=== PATIENT | male | born 1965 | race Caucasian/White ===

== ENCOUNTER 2018-12-11 13:58 | Emergency (ER) | payer OTHER ==
[2018-12-11 14:14] VITALS: BP 157/79; PULSE 76; RESP 16; TEMP 97.8
[2018-12-11] MEDS ORDERED: LIDOCAINE 1% INJ 10MG/ML (20 ML MDV) SQ ONE (14:19)
[2018-12-11] MEDS ORDERED: DIPH,PERTUS(ACELL)TETVAC-LF 0.5 ML VIAL IM ONE (14:19)
--- NOTE | 2018-12-11 14:23 | ED ---
Wound/Laceration HPI - General Chief Complaint: Wound/Laceration Stated Complaint: Facial Injury Time Seen by Provider: 12/11/18 14:16 Source: patient Mode of arrival: ambulatory Limitations: no limitations - History of Present Illness Initial Comments: Patient is a 53-year-old male presenting to emergency Department with complaints of a laceration to his bottom lip that happened prior to arrival. Patient states he was reaching for a baez on the upper shelf when it fell hitting him in the bottom lip as well as on the chin. Bleeding is minimal at this time. Patient denies being on blood thinners. Patient denies any other injuries from the baez falling. Patient states he does not remember his last tetanus vaccine. Patient has no pain in his jaw or head. Patient has no other complaints at this time. Upon arrival to ER, vital signs are stable. - Related Data Allergies Allergy/AdvReac Type Severity Reaction Status Date / Time Penicillins AdvReac Unknown Verified 12/11/18 14:37 Review of Systems ROS Statement: Those systems with pertinent positive or pertinent negative responses have been documented in the HPI. ROS Other: All systems not noted in ROS Statement are negative. Past Medical History Past Medical History: Diabetes Mellitus, Hypertension Additional Past Medical History / Comment(s): cx tounge 1993 History of Any Multi-Drug Resistant Organisms: None Reported Past Surgical History: No Surgical Hx Reported, Orthopedic Surgery Additional Past Surgical History / Comment(s): tounge surgery due to cx. Past Psychological History: No Psychological Hx Reported Smoking Status: Current every day smoker Past Alcohol Use History: Rare Past Drug Use History: Marijuana General Exam - General Exam Comments Initial Comments: GENERAL: Well-appearing, well-nourished and in no acute distress. HEAD: Atraumatic, normocephalic. EYES: Pupils equal round and reactive to light, extraocular movements intact, sclera anicteric, conjunctiva are normal. ENT: TMs normal, nares patent, oropharynx clear without exudates. Moist mucous membranes. Patient has a 1 cm laceration to the bottom lip including the vermilion border. Bleeding is controlled at this time. Patient also has a small superficial 0.5 cm lac to the chin area. This is not requiring sutures. No bleeding at this time. NECK: Normal range of motion, supple without lymphadenopathy or JVD. LUNGS: Breath sounds clear to auscultation bilaterally and equal. No wheezes rales or rhonchi. HEART: Regular rate and rhythm without murmurs, rubs or gallops. ABDOMEN: Soft, nontender, normoactive bowel sounds. No guarding, no rebound. No masses appreciated. : Deferred EXTREMITIES: Normal range of motion, no pitting or edema. No clubbing or cyanosis. NEUROLOGICAL: Cranial nerves II through XII grossly intact. Normal speech, normal gait. PSYCH: Normal mood, normal affect. SKIN: Warm, Dry, normal turgor, no rashes or lesions noted. Limitations: no limitations Course Vital Signs 12/11/18 14:09 Temperature 97.8 F Pulse Rate 76 Respiratory 16 Rate Blood Pressure 157/79 O2 Sat by Pulse 97 Oximetry Procedures - Laceration Laceration #1 Consent Obtained: verbal consent Indication: laceration Site: lip (Bottom lip) Size (cm): 1 Description: linear, involves benjamín border Depth: simple, single layer Anesthetic Used: lidocaine 1% Anesthesia Technique: local infiltration Amount (mls): 2 Pre-repair: irrigated extensively Type of Sutures: nylon Size of Sutures: 5-0 Number of Sutures: 3 Technique: simple, interrupted Patient Tolerated Procedure: well Medical Decision Making - Medical Decision Making Patient is a 53-year-old male presenting with a laceration to his bottom lip. Patient states he was pulling up hand out from a top cupboard when it fell onto his lip and chin. Patient has a small superficial laceration to his chin area which does not require sutures. Patient has a 1 cm laceration to the left side of the bottom lip involving the vermilion border. Wound was cleaned and closed with 3, 5-0 sutures. Patient tolerated procedure well. Patient will have sutures removed in 7-10 days. Patient's tetanus vaccine was updated today. Patient is stable for discharge at this time. Return parameters were discussed with the patient he verbalizes understanding. Case discussed with Dr. Askew. Disposition Clinical Impression: Laceration of lower lip Disposition: HOME SELF-CARE Condition: Stable Instructions (If sedation given, give patient instructions): Care For Your Stitches (ED), Laceration (ED) Additional Instructions: Please return to the Emergency Department if symptoms worsen or any other concerns. Sutures need to removed in 7-9 days. Is patient prescribed a controlled substance at d/c from ED?: No Referrals: Mayco Gonzalez MD [Primary Care Provider] - 1-2 days
== END 2018-12-11 15:05 | disposition home or self-care (01) ==
LOC: EC 13:58
DX: S01.511A Laceration without foreign body of lip, initial encounter (principal); S01.81XA Laceration without foreign body of other part of head, initial encounter; F17.200 Nicotine dependence, unspecified, uncomplicated; Z23 Encounter for immunization; Z85.810 Personal history of malignant neoplasm of tongue; Z98.890 Other specified postprocedural states; Z88.0 Allergy status to penicillin; W20.8XXA Other cause of strike by thrown, projected or falling object, initial encounter; Y92.009 Unspecified place in unspecified non-institutional (private) residence as the place of occurrence of the external cause; Y93.89 Activity, other specified
CPT/HCPCS: 90715; 99282; 12011; 90471; J2001

== ENCOUNTER 2019-04-28 06:49 | Day surgery (SDC) | payer OTHER ==
[2019-04-26 12:50] VITALS: BMI 36.5
[2019-04-28] MEDS ORDERED: LACTATED RINGERS 1,000 ML IV SCH (07:00)
[2019-04-28] MEDS ORDERED: LIDOCAINE 1% 20 ML VIAL (10MG/ML) FOR IV START INTRADERMA PRN (07:00)
[2019-04-28 07:10] VITALS: RESP 18; TEMP 98.2
[2019-04-28] MEDS ORDERED: PROPOFOL 10 MG/ML 20 ML VIAL IV ONE (07:32)
[2019-04-28] MEDS ORDERED: LIDOCAINE 1% INJ 10MG/ML (20 ML MDV) ONE (07:32)
[2019-04-28 07:35] LABS: Glucose,Whole Blood 118 mg/dL (75-99)
--- NOTE | 2019-04-28 07:57 | P.PCN ---
Date of Procedure: 04/28/19 Procedure(s) Performed: Brief history: Patient is a pleasant 53-year-old white male scheduled for an elective upper endoscopy as well as colonoscopy as a part of evaluation of I deficiency anemia. He denies any GI symptoms. Procedure performed: Esophagogastroduodenoscopy with biopsy Colonoscopy Preoperative diagnosis: Iron deficiency anemia Anesthesia: [facility] [place] Procedure: After informed consent was obtained from the patient was brought into the endoscopy unit and IV sedation was administered by anesthesia under continuous monitoring. Initially upper endoscopy was done. The Olympus GF 160 video endoscope was inserted inserted into the mouth and esophagus intubated without any difficulty and was gradually advanced into the stomach and duodenum and carefully examined. The bulb and second part of the duodenum appeared normal. Biopsies were done from the duodenum to rule out celiac disease. The scope was then withdrawn into the stomach adequately insufflated with air and upon careful examination the antrum had mild diffuse gastritis and biopsies were done from this area. The body, cardia and fundus appeared normal. The scope was then withdrawn into the esophagus. The GE junction was located at 40 cm to the incisors. It appeared regular with no erythema erosions or ulcerations. Rest of the esophagus appeared normal. Patient tolerated the procedure well. At this time the patient continued to remain sedation. Initial digital rectal examination was normal. Olympus CF 160 video colonoscope was then inserted into the rectum and gradually advanced to the cecum without any difficulty. Careful examination was performed as the scope was gradually being withdrawn. The prep was excellent. The cecum, ascending colon, appeared normal in the mid transverse colon there was a 5 mm isolated ulceration with a clean base identified and this was biopsied. The rest of the transverse colon, descending colon, sigmoid colon and rectum appeared normal. Retroflexion was performed in the rectum and small internal hemorrhoids were noted. Patient tolerated the procedure well. Impression: 1. Upper endoscopy revealed mild diffuse antral gastritis 2. Colonoscopy revealed a 5 mm isolated mid transverse colon ulcer status post biopsy and small internal hemorrhoids. No evidence of colorectal neoplasia Recommendations: Findings of this examination were discussed with the patient as well as his family. He was advised to follow with the biopsy results.
[2019-04-28] MEDS ORDERED: IV FLUID CONTINUATION 1,000 ML IV ONE (08:00)
[2019-04-28 08:17] VITALS: BP 130/91; PULSE 66
== END 2019-04-28 08:44 | disposition home or self-care (01) ==
LOC: ORWHC2ENDO 06:49
PROVIDERS: ATTEND Internal Medicine Gastroenterology
DX: K29.50 Unspecified chronic gastritis without bleeding (principal); K63.3 Ulcer of intestine; K64.8 Other hemorrhoids; D50.9 Iron deficiency anemia, unspecified; Z79.899 Other long term (current) drug therapy; I10 Essential (primary) hypertension; E78.5 Hyperlipidemia, unspecified; F17.200 Nicotine dependence, unspecified, uncomplicated; Z85.810 Personal history of malignant neoplasm of tongue; E11.9 Type 2 diabetes mellitus without complications; K21.9 Gastro-esophageal reflux disease without esophagitis; Z79.84 Long term (current) use of oral hypoglycemic drugs; Z79.891 Long term (current) use of opiate analgesic; Z88.0 Allergy status to penicillin
CPT/HCPCS: 88305; 45380; 43239; J2001; J2704

== ENCOUNTER 2019-07-27 11:31 | Emergency (ER) | payer OTHER ==
[2019-07-27 11:36] VITALS: RESP 18; TEMP 98.3
[2019-07-27] MEDS ORDERED: ORPHENADRINE 30 MG/ML 2 ML VIAL IM STA (12:32)
[2019-07-27] MEDS ORDERED: KETOROLAC 60 MG/2 ML VIAL IM STA (12:32)
--- NOTE | 2019-07-27 12:35 | XR ---
EXAMINATION TYPE: XR lumbar spine 2 or 3V DATE OF EXAM: 07/27/2019 CLINICAL HISTORY: pain TECHNIQUE: Three views of the lumbar spine are submitted. COMPARISON: 05/11/2014 FINDINGS: There are 5 lumbar type vertebral bodies identified. The lumbar spine shows satisfactory alignment w ithout evidence of acute fracture or dislocation. Vertebral body heights are within normal limits. Severe multilevel degenerative disc disease with endplate sclerosis and spondylosis. Severe facet janette int arthropathy. L5-S1 foraminal encroachment. The overlying soft tissue appears unremarkable. IMPRESSION: No acute fracture or dislocation is seen in the lumbar spine. ICD 10 NO FRACTURE, INITIAL EVALUATION
--- NOTE | 2019-07-27 12:37 | XR ---
EXAMINATION TYPE: XR ribs bilat w pa chest xray DATE OF EXAM: 07/27/2019 COMPARISON: NONE HISTORY: Pain TECHNIQUE: Single view of the chest 8 views of the bilateral ribs are submitted. FINDINGS: The lungs are clear. No Evidence for pneumothorax. No evidence for focal contusion. Medi astinal structures are midline. Evaluation of the ribs fails to demonstrate evidence for displaced r ib fracture or secondary sign of rib fracture. IMPRESSION: Negative study
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
[2019-07-27 13:25] VITALS: BP 135/96; PULSE 74
== END 2019-07-27 13:24 | disposition home or self-care (01) ==
LOC: EC 11:31
DX: S00.83XA Contusion of other part of head, initial encounter (principal); S30.0XXA Contusion of lower back and pelvis, initial encounter; R07.81 Pleurodynia; E11.9 Type 2 diabetes mellitus without complications; I10 Essential (primary) hypertension; K21.9 Gastro-esophageal reflux disease without esophagitis; F41.9 Anxiety disorder, unspecified; F17.200 Nicotine dependence, unspecified, uncomplicated; Z79.84 Long term (current) use of oral hypoglycemic drugs; Z79.899 Other long term (current) drug therapy; Z88.0 Allergy status to penicillin; Y04.0XXA Assault by unarmed brawl or fight, initial encounter; Y93.53 Activity, golf; Y92.39 Other specified sports and athletic area as the place of occurrence of the external cause
CPT/HCPCS: 71111; 72100; 99284; 96372 ×2; J2360; J1885

== ENCOUNTER → 2022-12-28 | Outpatient (CLI) | payer BC | LOC: 3 N SLEEP 10:41 | PROVIDERS: ATTEND Internal Medicine | DX: G47.33 Obstructive sleep apnea (adult) (pediatric) (principal); F17.200 Nicotine dependence, unspecified, uncomplicated; Z88.0 Allergy status to penicillin ==